=== PATIENT | female | born 1980 | race Caucasian/White ===

== ENCOUNTER 2017-02-18 00:50 | Emergency (ER) | payer MEDICAID ==
[~2017-02-18] VITALS: Ht 167.6 cm; Wt 71.8 kg
[~2017-02-18 00:50] MED LIST: ADDERALL XR30 MG PO; ADDERALL10 MG PO; AMOXICILLIN 8751 TAB PO; CHANTIX 0.5MG0.5 MG PO; DOXYCYCLINE 10100 MG PO; KLONOPIN 0.5MG0.5 MG PO; LOESTRIN 1/20 28 DAY PO; MAXALT10 MG PO; MAXALT5 MG PO; MOTRIN 800800 MG/TAB PO; NO HOME MEDS; NORCO 325 MG-51 TAB PO; PERCOCET 325 MG1 TA2 PO; PRENATAL VITAMI1 TA5 PO; PROZAC10 MG PO
[2017-02-18 00:52] VITALS: TEMP 98
[2017-02-18 02:29] VITALS: BP 122/70; PULSE 89
== END 2017-02-18 02:30 | disposition home or self-care (01) ==
LOC: COL.ER 00:50
DX: Z48.02 Encounter for removal of sutures (principal); F41.9 Anxiety disorder, unspecified; G40.909 Epilepsy, unspecified, not intractable, without status epilepticus

== ENCOUNTER 2017-03-19 17:59 | Emergency (ER) | payer MEDICAID ==
[~2017-03-19] VITALS: Ht 167.6 cm; Wt 72.7 kg
[2017-03-19 18:02] VITALS: BP 120/76; PULSE 87; TEMP 98.4
[2017-03-19] MEDS ORDERED: CEPHALEXIN500 M1 PO (18:22)
== END 2017-03-19 18:26 | disposition home or self-care (01) ==
LOC: COL.ER 17:59
DX: L98.8 Other specified disorders of the skin and subcutaneous tissue (principal)

== ENCOUNTER 2017-07-03 14:00 | Outpatient (RCR) | payer MEDICAID ==
[~2017-07-03 14:00] MED LIST changes: +CEPHALEXIN500 M1 PO
== END 2017-07-31 | disposition still patient (30) ==
LOC: WSPT
DX: M25.551 Pain in right hip (principal); R26.89 Other abnormalities of gait and mobility; M25.651 Stiffness of right hip, not elsewhere classified; R53.1 Weakness; R20.0 Anesthesia of skin
CPT/HCPCS: G0283-GP; G8978-GP; G8979-GP

== ENCOUNTER → 2017-08-17 | Outpatient (CLI) | payer MEDICAID | LOC: COL.RAD 12:57 | DX: J01.01 Acute recurrent maxillary sinusitis (principal); J34.89 Other specified disorders of nose and nasal sinuses ==

== ENCOUNTER 2018-03-15 10:45 | Outpatient (RCR) | payer MEDICAID | END 2018-05-27 | disposition home or self-care (01) | LOC: WSPT | DX: M25.551 Pain in right hip (principal); Z79.899 Other long term (current) drug therapy | CPT/HCPCS: G0283-GP; G8978-GP; G8979-GP ==

== ENCOUNTER 2018-07-10 12:50 | Day surgery (SDC) | payer MEDICAID ==
[~2018-07-10] VITALS: Ht 167.6 cm; Wt 66.1 kg
[2018-07-10] MEDS ORDERED: ADDERALL20 MG PO (13:17)
[2018-07-10] MEDS ORDERED: MAVYRET 100-401 EACH PO (13:18)
[2018-07-10] MEDS ORDERED: ALLEGRA ALLERG180 MG PO (13:19)
[2018-07-10] MEDS ORDERED: JOLIVETTE0.35 MG PO (13:20)
[2018-07-10] MEDS ORDERED: FLEXERIL 1010 MG/TAB PO (13:21)
[2018-07-10] MEDS ORDERED: DIFLUCAN150 MG PO (13:23)
[2018-07-10] MEDS ORDERED: SMZ/TMP DS TAB 800 PO (13:23)
[2018-07-10 13:25] VITALS: BP 115/77; PULSE 82; TEMP 98.9
[2018-07-10] MEDS ORDERED: PRILOSEC 20MG20 MG PO (14:27)
[2018-07-10 14:35] VITALS: BP 126/78; PULSE 88; TEMP 97.8
[2018-07-10 14:50] VITALS: BP 73/34; PULSE 90
[2018-07-10 15:05] VITALS: BP 120/87; PULSE 83
== END 2018-07-10 15:25 | disposition home or self-care (01) ==
LOC: SDCO 12:50
DX: K29.30 Chronic superficial gastritis without bleeding (principal); J45.909 Unspecified asthma, uncomplicated; F17.210 Nicotine dependence, cigarettes, uncomplicated; D64.9 Anemia, unspecified
CPT/HCPCS: OP; J2704; J7030

== ENCOUNTER 2018-10-29 16:26 | Emergency (ER) | payer MEDICAID ==
[~2018-10-29] VITALS: Ht 167.6 cm; Wt 69.1 kg
[~2018-10-29 16:26] MED LIST changes: +ADDERALL20 MG PO; +ALLEGRA ALLERG180 MG PO; +DIFLUCAN150 MG PO; +FLEXERIL 1010 MG/TAB PO; +JOLIVETTE0.35 MG PO; +MAVYRET 100-401 EACH PO; +PRILOSEC 20MG20 MG PO; +SMZ/TMP DS TAB 800 PO
[2018-10-29 16:35] VITALS: TEMP 99
[2018-10-29 17:02] LABS: COLLECTION METHOD CLEAN CATCH
[2018-10-29 17:10] LABS: PH 6 (5-8); SQUAMOUS EPITHELIAL 0-2 /hpf; URINE APPEARANCE Clear; URINE BACTERIA None Seen /hpf; URINE BILIRUBIN Negative (NEGATIVE); URINE BLOOD 1+ (NEGATIVE); URINE COLOR Straw; URINE GLUCOSE Negative (NEGATIVE); URINE KETONE Negative (NEGATIVE); URINE LEUKOCYTE ESTERASE Negative (NEGATIVE); URINE NITRATE Negative (NEGATIVE); URINE PROTEIN(semi-quant) Negative (NEGATIVE); URINE RBC 0-2 /hpf; URINE UROBILINOGEN Negative (NEGATIVE)
[2018-10-29 17:19] LABS: TRICYCLIC ANTIDEPRESS URINE NEGATIVE
[2018-10-29 17:25] LABS: BASO % 0.5 % (0.0-2.0); EOS # 0.1 (0.0-0.7); EOS % 0.8 % (0-4.0); GRAN # 4.8 (1.4-6.5); GRAN % 54.8 % (42.2-75.2); HEMATOCRIT 39.8 % (37.0-47.0); HEMOGLOBIN 13.1 g/dl (12.5-16.0); LYMPH # 3.3 (1.2-3.4); LYMPH % 37.1 % (20.0-51.0); MEAN CELL VOLUME 94 fl (80.0-100.0); MEAN CORPUSCULAR HEMOGLOBIN 31 pg (27.0-31.0); MEAN CORPUSCULAR HGB CONC 33 g/dl (33.0-37.0); MEAN PLATELET VOLUME 9.1 fl (7.4-10.4); MONO # 0.6 (0.1-0.6); MONO % 6.6 % (1.7-9.3); PLATELET COUNT 340 K/mm3 (130-400); RED BLOOD COUNT 4.22 M/mm3 (4.10-5.30); REDCELL DISTRIBUTION WIDTH-CV 12.5 % (11.5-14.5)
[2018-10-29 17:26] LABS: ALANINE AMINOTRANSFERASE 18 U/L (9-52); ALKALINE PHOSPHATASE 99 U/L (50-136); ANION GAP 6 mmol/L (7-16); AST,SGOT 20 U/L (15-37); BILIRUBIN,TOTAL 0.2 mg/dL (0.0-1.0); BLOOD UREA NITROGEN 8 mg/dL (7-17); CALCIUM 9.3 mg/dL (8.4-10.2); CARBON DIOXIDE 25 mmol/L (22-30); CHLORIDE 109 mmol/L (98-107); CREATININE, serum 0.56 mg/dL (0.52-1.25); GLUCOSE 95 mg/dL (74-106); POTASSIUM 4.1 mmol/L (3.4-5.0); SODIUM 140 mmol/L (137-145)
[2018-10-29 17:27] LABS: ACETAMINOPHEN < 10 ug/mL (10-30); ALCOHOL(ethanol),MEDICAL < 10 mg/dL; SALICYLATE < 1.0 mg/dL
[2018-10-29 21:28] VITALS: BP 131/98; PULSE 82
== END 2018-10-29 22:00 ==
LOC: COL.ER 16:26
PROVIDERS: Emergency Medicine
DX: R45.851 Suicidal ideations (principal); F32.9 Major depressive disorder, single episode, unspecified; F17.210 Nicotine dependence, cigarettes, uncomplicated; G40.909 Epilepsy, unspecified, not intractable, without status epilepticus

== ENCOUNTER 2019-10-03 23:49 | Emergency (ER) | payer MEDICAID ==
[~2019-10-03] VITALS: Ht 167.6 cm; Wt 72.7 kg
[2019-10-03 23:58] VITALS: TEMP 97.1
[2019-10-04 00:45] VITALS: BP 154/100; PULSE 102
== END 2019-10-04 00:50 | disposition home or self-care (01) ==
LOC: COL.ER 23:49
DX: F14.10 Cocaine abuse, uncomplicated (principal); G40.909 Epilepsy, unspecified, not intractable, without status epilepticus; F17.210 Nicotine dependence, cigarettes, uncomplicated

== ENCOUNTER 2020-01-31 07:21 | Emergency (ER) | payer MEDICAID ==
[~2020-01-31] VITALS: Ht 167.6 cm; Wt 72.7 kg
[2020-01-31 07:26] VITALS: TEMP 97.7
[2020-01-31 08:53] VITALS: BP 139/97; PULSE 76
[2020-01-31] MEDS ORDERED: ZOFRAN ODT4 MG PO (09:02)
== END 2020-01-31 08:59 | disposition home or self-care (01) ==
LOC: COL.ER 07:21
DX: R11.10 Vomiting, unspecified (principal); F17.210 Nicotine dependence, cigarettes, uncomplicated
CPT/HCPCS: J2405; J7120

== ENCOUNTER → 2020-02-28 | Outpatient (CLI) | payer MEDICARE, MEDICAID ==
[~2020-02-28] MED LIST changes: +ZOFRAN ODT4 MG PO
== END ==
LOC: COL.RAD 10:24
DX: R10.13 Epigastric pain (principal)

== ENCOUNTER 2020-04-11 21:06 | Emergency (ER) | payer MEDICARE, MEDICAID ==
[~2020-04-11] VITALS: Ht 167.6 cm; Wt 72.7 kg
[2020-04-11 21:10] VITALS: BP 124/84; TEMP 98.7
[2020-04-11 21:33] LABS: COLLECTION METHOD CLEAN CATCH
[2020-04-11 21:53] LABS: PH 6 (5-8); SQUAMOUS EPITHELIAL 0-2 /hpf; URINE APPEARANCE Clear; URINE BACTERIA Occasional /hpf; URINE BILIRUBIN Negative (NEGATIVE); URINE BLOOD 3+ (NEGATIVE); URINE COLOR Straw; URINE GLUCOSE Negative (NEGATIVE); URINE KETONE Negative (NEGATIVE); URINE LEUKOCYTE ESTERASE 3+ (NEGATIVE); URINE NITRATE Negative (NEGATIVE); URINE PROTEIN(semi-quant) Negative (NEGATIVE); URINE RBC 0-2 /hpf; URINE UROBILINOGEN Negative (NEGATIVE)
[2020-04-11] MEDS ORDERED: PYRIDIUM 100MG100 MG PO (22:02)
[2020-04-11] MEDS ORDERED: BACTRIM DS 8001 TAB PO (22:02)
[2020-04-11 22:16] VITALS: PULSE 82
[2020-04-13] MEDS ORDERED: CIPRO 500MG TA500 MG PO (16:04)
== END 2020-04-11 22:17 | disposition home or self-care (01) ==
LOC: COL.ER 21:06
PROVIDERS: Nurse Practitioner
DX: N39.0 Urinary tract infection, site not specified (principal); F41.9 Anxiety disorder, unspecified; F17.210 Nicotine dependence, cigarettes, uncomplicated

== ENCOUNTER 2020-05-03 17:47 | Emergency (ER) | payer MEDICARE, MEDICAID ==
[~2020-05-03] VITALS: Ht 167.6 cm; Wt 72.7 kg
[~2020-05-03 17:47] MED LIST changes: +BACTRIM DS 8001 TAB PO; +CIPRO 500MG TA500 MG PO; +MACROBID 1100 MG/CAP PO; +PYRIDIUM 100MG100 MG PO
[2020-05-03 18:01] VITALS: BP 129/90; TEMP 98.6
[2020-05-03 19:48] LABS: COLLECTION METHOD CLEAN CATCH
[2020-05-03 19:55] LABS: PH 7 (5-8); SQUAMOUS EPITHELIAL None Seen /hpf; URINE APPEARANCE Clear; URINE BACTERIA Rare /hpf; URINE BILIRUBIN Negative (NEGATIVE); URINE BLOOD Negative (NEGATIVE); URINE COLOR Straw; URINE GLUCOSE Negative (NEGATIVE); URINE KETONE Negative (NEGATIVE); URINE LEUKOCYTE ESTERASE Negative (NEGATIVE); URINE NITRATE Negative (NEGATIVE); URINE PROTEIN(semi-quant) Negative (NEGATIVE); URINE RBC 0-2 /hpf; URINE UROBILINOGEN Negative (NEGATIVE)
[2020-05-03 21:30] VITALS: PULSE 77
== END 2020-05-03 21:30 | disposition home or self-care (01) ==
LOC: COL.ER 17:47
PROVIDERS: Physician Assistant
DX: G43.909 Migraine, unspecified, not intractable, without status migrainosus (principal); F32.9 Major depressive disorder, single episode, unspecified; F41.9 Anxiety disorder, unspecified; F90.9 Attention-deficit hyperactivity disorder, unspecified type; F17.210 Nicotine dependence, cigarettes, uncomplicated; Z88.8 Allergy status to other drugs, medicaments and biological substances; Z88.6 Allergy status to analgesic agent; Z88.1 Allergy status to other antibiotic agents
CPT/HCPCS: J1100; J1200; J2765; J7030

== ENCOUNTER 2020-07-30 03:01 | Emergency (ER) | payer MEDICARE, MEDICAID ==
[~2020-07-30] VITALS: Ht 167.6 cm; Wt 72.7 kg
[2020-07-30 03:05] VITALS: BP 130/89; TEMP 99
[2020-07-30 03:53] LABS: BASO # 0.1 (0.0-0.2); BASO % 0.5 % (0.0-2.0); EOS # 0.2 (0.0-0.7); GRAN # 5.1 (1.4-6.5); GRAN % 49.5 % (42.2-75.2); HEMATOCRIT 38.1 % (37.0-47.0); HEMOGLOBIN 12.7 g/dl (12.5-16.0); LYMPH # 4.1 (1.2-3.4); LYMPH % 39.9 % (20.0-51.0); MEAN CELL VOLUME 91 fl (80.0-100.0); MEAN CORPUSCULAR HEMOGLOBIN 30 pg (27.0-31.0); MEAN CORPUSCULAR HGB CONC 33 g/dl (33.0-37.0); MEAN PLATELET VOLUME 9.4 fl (7.4-10.4); MONO # 0.8 (0.1-0.6); MONO % 7.7 % (1.7-9.3); PLATELET COUNT 373 K/mm3 (130-400); RED BLOOD COUNT 4.19 M/mm3 (4.10-5.30); REDCELL DISTRIBUTION WIDTH-CV 12.7 % (11.5-14.5)
[2020-07-30 04:21] LABS: ALANINE AMINOTRANSFERASE 17 U/L (4-34); ALKALINE PHOSPHATASE 102 U/L (50-136); ANION GAP 6 mmol/L (7-16); AST,SGOT 28 U/L (15-37); BILIRUBIN,TOTAL 0.3 mg/dL (0.0-1.0); BLOOD UREA NITROGEN 12 mg/dL (7-17); CALCIUM 8.1 mg/dL (8.4-10.2); CARBON DIOXIDE 22 mmol/L (22-30); CHLORIDE 108 mmol/L (98-107); CREATININE, serum 0.67 (0.52-1.25); ERYTHROCYTE SEDIMENTATION RATE 9 mm/hr (0-20); GLUCOSE 99 mg/dL (74-106); POTASSIUM 4.1 mmol/L (3.4-5.0); SODIUM 137 mmol/L (137-145); TOTAL PROTEIN 6.5 gm/dL (6.4-8.2)
[2020-07-30 04:24] LABS: C-REACTIVE PROTEIN < 0.5 mg/dL (0.0-0.9)
[2020-07-30] MEDS ORDERED: SEPTRA DS 8001 TAB PO (04:43)
[2020-07-30] MEDS ORDERED: NORCO 325 MG-51 TAB PO (04:43)
[2020-07-30 05:00] VITALS: PULSE 68
[2020-07-30] MEDS ORDERED: DIFLUCAN200 MG PO (05:00)
== END 2020-07-30 05:00 | disposition home or self-care (01) ==
LOC: COL.ER 03:01
PROVIDERS: Emergency Medicine
DX: R22.31 Localized swelling, mass and lump, right upper limb (principal); F41.9 Anxiety disorder, unspecified; K21.9 Gastro-esophageal reflux disease without esophagitis; F17.210 Nicotine dependence, cigarettes, uncomplicated; Z88.1 Allergy status to other antibiotic agents; Z88.6 Allergy status to analgesic agent; Z88.8 Allergy status to other drugs, medicaments and biological substances

== ENCOUNTER 2020-09-12 21:04 | Emergency (ER) | payer MEDICARE, MEDICAID ==
[~2020-09-12] VITALS: Ht 167.6 cm; Wt 72.7 kg
[~2020-09-12 21:04] MED LIST changes: +DIFLUCAN200 MG PO; +SEPTRA DS 8001 TAB PO
[2020-09-12 21:31] VITALS: BP 126/87; TEMP 98.4
[2020-09-13 00:44] VITALS: PULSE 78
== END 2020-09-13 00:44 | disposition home or self-care (01) ==
LOC: COL.ER 21:04
DX: L50.9 Urticaria, unspecified (principal); F90.9 Attention-deficit hyperactivity disorder, unspecified type; F41.9 Anxiety disorder, unspecified; G40.909 Epilepsy, unspecified, not intractable, without status epilepticus; F17.210 Nicotine dependence, cigarettes, uncomplicated; Z88.1 Allergy status to other antibiotic agents; Z88.8 Allergy status to other drugs, medicaments and biological substances

== ENCOUNTER 2020-09-21 21:13 | Emergency (ER) | payer MEDICARE, MEDICAID ==
[~2020-09-21] VITALS: Ht 167.6 cm; Wt 72.7 kg
[2020-09-21] MEDS ORDERED: AMOXICILLIN 50500 MG PO (22:05)
[2020-09-21 22:35] VITALS: BP 118/64; PULSE 76; TEMP 98.3
== END 2020-09-21 22:37 | disposition home or self-care (01) ==
LOC: COL.ER 21:13
DX: K08.89 Other specified disorders of teeth and supporting structures (principal); R56.9 Unspecified convulsions; F17.200 Nicotine dependence, unspecified, uncomplicated; Z88.1 Allergy status to other antibiotic agents; Z88.6 Allergy status to analgesic agent; Z91.040 Latex allergy status; Z79.2 Long term (current) use of antibiotics

== ENCOUNTER 2020-11-22 19:52 | Emergency (ER) | payer MEDICARE, MEDICAID ==
[~2020-11-22] VITALS: Ht 167.6 cm; Wt 68.2 kg
[~2020-11-22 19:52] MED LIST changes: +AMOXICILLIN 50500 MG PO
[2020-11-22 21:42] LABS: BASO # 0.1 (0.0-0.2); BASO % 0.4 % (0.0-2.0); EOS # 0.5 (0.0-0.7); EOS % 4.1 % (0-4.0); GRAN # 6.7 (1.4-6.5); GRAN % 55.9 % (42.2-75.2); HEMOGLOBIN 12.2 g/dl (12.5-16.0); LYMPH # 3.8 (1.2-3.4); LYMPH % 31.6 % (20.0-51.0); MEAN CELL VOLUME 91 fl (80.0-100.0); MEAN CORPUSCULAR HEMOGLOBIN 31 pg (27.0-31.0); MEAN CORPUSCULAR HGB CONC 34 g/dl (33.0-37.0); MEAN PLATELET VOLUME 9.1 fl (7.4-10.4); MONO # 0.8 (0.1-0.6); PLATELET COUNT 338 K/mm3 (130-400); RED BLOOD COUNT 3.96 M/mm3 (4.10-5.30); REDCELL DISTRIBUTION WIDTH-CV 12.3 % (11.5-14.5)
[2020-11-22 21:43] LABS: HEMATOCRIT 36.1 % (37.0-47.0)
[2020-11-22 21:46] LABS: COLLECTION METHOD CLEAN CATCH
[2020-11-22 21:52] LABS: MUCOUS Present /lpf; PH 6 (5-8); SQUAMOUS EPITHELIAL 0-2 /hpf; URINE APPEARANCE Clear; URINE BACTERIA None Seen /hpf; URINE BILIRUBIN Negative (NEGATIVE); URINE BLOOD Negative (NEGATIVE); URINE COLOR Yellow; URINE GLUCOSE Negative (NEGATIVE); URINE KETONE Negative (NEGATIVE); URINE LEUKOCYTE ESTERASE Negative (NEGATIVE); URINE NITRATE Negative (NEGATIVE); URINE PROTEIN(semi-quant) Negative (NEGATIVE); URINE RBC 0-2 /hpf; URINE UROBILINOGEN Negative (NEGATIVE)
[2020-11-22 21:54] LABS: ALBUMIN 3.6 gm/dL (3.5-5.0); BILIRUBIN,TOTAL 0.1 mg/dL (0.0-1.0); CALCIUM 8.9 mg/dL (8.4-10.2); CREATININE, serum 0.5 (0.52-1.25); POTASSIUM 4.3 mmol/L (3.4-5.0); TOTAL PROTEIN 6.6 gm/dL (6.4-8.2)
[2020-11-22] MEDS ORDERED: AMOXICILLIN 8751 TAB PO (23:17)
[2020-11-22] MEDS ORDERED: DICLEGIS PO (23:17)
[2020-11-22 23:35] VITALS: BP 127/86; PULSE 85; TEMP 97.5
[2021-06-24] MEDS ORDERED: PROZAC40 MG PO (08:13)
[2021-06-24] MEDS ORDERED: PERCOCET 325 MG1 TA2 PO (15:20)
[2021-06-24] MEDS ORDERED: TYLENOL 325MG325 MG PO (15:20)
== END 2020-11-22 23:35 | disposition home or self-care (01) ==
LOC: COL.ER 19:52
PROVIDERS: Emergency Medicine
DX: O99.611 Diseases of the digestive system complicating pregnancy, first trimester (principal); K08.89 Other specified disorders of teeth and supporting structures; O26.891 Other specified pregnancy related conditions, first trimester; M54.5 Low back pain; Z88.6 Allergy status to analgesic agent; Z88.1 Allergy status to other antibiotic agents; Z91.041 Radiographic dye allergy status; Z91.040 Latex allergy status; Z87.891 Personal history of nicotine dependence; Z3A.08 8 weeks gestation of pregnancy

== ENCOUNTER 2020-11-29 11:34 | Emergency (ER) | payer MEDICARE, MEDICAID ==
[~2020-11-29] VITALS: Ht 167.6 cm; Wt 73.2 kg
[~2020-11-29 11:34] MED LIST changes: +DICLEGIS PO
[2020-11-29 11:41] VITALS: TEMP 97.5
[2020-11-29 12:09] LABS: COLLECTION METHOD CLEAN CATCH
[2020-11-29 12:15] LABS: PH 7 (5-8); SQUAMOUS EPITHELIAL 0-2 /hpf; URINE APPEARANCE Clear; URINE BACTERIA Rare /hpf; URINE BILIRUBIN Negative (NEGATIVE); URINE BLOOD 1+ (NEGATIVE); URINE COLOR Yellow; URINE GLUCOSE Negative (NEGATIVE); URINE KETONE Negative (NEGATIVE); URINE LEUKOCYTE ESTERASE Negative (NEGATIVE); URINE NITRATE Negative (NEGATIVE); URINE PROTEIN(semi-quant) Negative (NEGATIVE); URINE UROBILINOGEN Negative (NEGATIVE)
[2020-11-29 12:22] LABS: ALBUMIN 3.9 gm/dL (3.5-5.0); BILIRUBIN,TOTAL 0.2 mg/dL (0.0-1.0); CALCIUM 9.2 mg/dL (8.4-10.2); CREATININE, serum 0.44 (0.52-1.25); TOTAL PROTEIN 7.3 gm/dL (6.4-8.2)
[2020-11-29 12:28] LABS: TRICYCLIC ANTIDEPRESS URINE NEGATIVE
[2020-11-29 12:36] LABS: BASO # 0.1 (0.0-0.2); BASO % 0.5 % (0.0-2.0); EOS # 0.4 (0.0-0.7); EOS % 3.2 % (0-4.0); GRAN % 58.9 % (42.2-75.2); HEMATOCRIT 39.7 % (37.0-47.0); LYMPH # 3.6 (1.2-3.4); LYMPH % 30.1 % (20.0-51.0); MEAN CELL VOLUME 93 fl (80.0-100.0); MEAN CORPUSCULAR HEMOGLOBIN 30 pg (27.0-31.0); MEAN CORPUSCULAR HGB CONC 33 g/dl (33.0-37.0); MEAN PLATELET VOLUME 9.3 fl (7.4-10.4); MONO # 0.7 (0.1-0.6); PLATELET COUNT 426 K/mm3 (130-400); RED BLOOD COUNT 4.27 M/mm3 (4.10-5.30); REDCELL DISTRIBUTION WIDTH-CV 12.5 % (11.5-14.5)
[2020-11-29] MEDS ORDERED: PHENERGAN 25 TA25 MG PO (13:53)
[2020-11-29 14:20] VITALS: BP 120/74; PULSE 74
[2021-06-24] MEDS ORDERED: PROZAC40 MG PO (08:13)
[2021-06-24] MEDS ORDERED: PERCOCET 325 MG1 TA2 PO (15:20)
[2021-06-24] MEDS ORDERED: TYLENOL 325MG325 MG PO (15:20)
== END 2020-11-29 14:20 | disposition home or self-care (01) ==
LOC: COL.ER 11:34
PROVIDERS: Nurse Practitioner
DX: O26.891 Other specified pregnancy related conditions, first trimester (principal); R10.30 Lower abdominal pain, unspecified; O21.9 Vomiting of pregnancy, unspecified; F90.9 Attention-deficit hyperactivity disorder, unspecified type; Z3A.10 10 weeks gestation of pregnancy; Z88.6 Allergy status to analgesic agent; Z88.1 Allergy status to other antibiotic agents; Z87.891 Personal history of nicotine dependence
CPT/HCPCS: J2550; J7030

== ENCOUNTER → 2021-05-03 | Outpatient (CLI) | payer MEDICARE, MEDICAID ==
[~2021-05-03] MED LIST changes: +PHENERGAN 25 TA25 MG PO; +PROZAC40 MG PO; +TYLENOL 325MG325 MG PO
== END ==
LOC: DIA.ED 08:05
DX: O24.419 Gestational diabetes mellitus in pregnancy, unspecified control (principal)

== ENCOUNTER → 2024-01-11 | Outpatient (CLI) | payer MEDICARE, MEDICAID ==
[~2024-01-11] MED LIST changes: +PREDNISONE20 MG PO; +ZITHROMAX Z PA250 MG PO
== END ==
LOC: MHCPAIN 14:00
DX: M54.16 Radiculopathy, lumbar region (principal); M43.16 Spondylolisthesis, lumbar region; M25.551 Pain in right hip; M25.552 Pain in left hip
CPT/HCPCS: G0463

== ENCOUNTER 2024-01-12 19:36 | Emergency (ER) | payer MEDICARE, MEDICAID ==
[~2024-01-12] VITALS: Ht 165.1 cm; Wt 63.6 kg
[2024-01-12 19:44] VITALS: TEMP 98.6
[2024-01-12 21:10] VITALS: BP 142/96; PULSE 96
== END 2024-01-12 21:13 | disposition home or self-care (01) ==
LOC: COL.ER 19:36
DX: S60.221A Contusion of right hand, initial encounter (principal); F17.290 Nicotine dependence, other tobacco product, uncomplicated; Z91.040 Latex allergy status; W22.01XA Walked into wall, initial encounter

== ENCOUNTER → 2024-03-12 | Outpatient (CLI) | payer MEDICARE, MEDICAID | LOC: COL.RAD 15:27 | DX: M51.36 Other intervertebral disc degeneration, lumbar region (principal); M43.16 Spondylolisthesis, lumbar region; M25.551 Pain in right hip; M25.552 Pain in left hip ==

== ENCOUNTER → 2024-05-02 | Outpatient (CLI) | payer MEDICARE, MEDICAID | LOC: MHCPAIN 11:28 | DX: M54.16 Radiculopathy, lumbar region (principal); M43.16 Spondylolisthesis, lumbar region | CPT/HCPCS: G0463 ==

== ENCOUNTER → 2024-06-06 | Outpatient (CLI) | payer MEDICARE ==
[~2024-06-06] MED LIST changes: +Iohexol 300 - 10 ML VIAL ONE; +Lidocaine PF 2% (20 MG/ML) 2 ML VIAL ONE
== END ==
LOC: MHCPAIN 08:17
DX: M54.16 Radiculopathy, lumbar region (principal); M54.50 Low back pain, unspecified
CPT/HCPCS: J1100; Q9967

== ENCOUNTER → 2024-07-04 | Outpatient (CLI) | payer MEDICARE ==
[~2024-07-04] MED LIST changes: -Iohexol 300 - 10 ML VIAL ONE; -Lidocaine PF 2% (20 MG/ML) 2 ML VIAL ONE
== END ==
LOC: MHCPAIN 14:24
DX: M54.16 Radiculopathy, lumbar region (principal); M43.16 Spondylolisthesis, lumbar region; M54.6 Pain in thoracic spine
CPT/HCPCS: G0463